=== PATIENT | male | born 1975 | race Caucasian/White ===

== ENCOUNTER 2024-07-24 10:49 | Emergency (ER) | payer OTHER ==
[~2024-07-24] VITALS: Ht 170.2 cm; Wt 87.1 kg
[~2024-07-24 10:49] MED LIST: HYDACE5 PO; OXYACE5T PO; PROM25 PO
[2024-07-24 11:01] VITALS: BP 153/99
[2024-07-24] MEDS ORDERED: PANTOPRAZOLE SO40 M2 PO (11:02)
== END 2024-07-24 12:36 | disposition home or self-care (01) ==
LOC: ER 10:49
DX: S86.111A Strain of other muscle(s) and tendon(s) of posterior muscle group at lower leg level, right leg, initial encounter (principal); K21.9 Gastro-esophageal reflux disease without esophagitis; F17.210 Nicotine dependence, cigarettes, uncomplicated; Z79.899 Other long term (current) drug therapy; Z59.89 Other problems related to housing and economic circumstances; X58.XXXA Exposure to other specified factors, initial encounter
CPT/HCPCS: 76882; 99283-25